=== PATIENT | male | born 1975 | race Caucasian/White ===

== ENCOUNTER 2019-02-20 16:47 | Emergency (ER) | payer OTHER ==
[~2019-02-20] VITALS: Ht 188 cm; Wt 124.7 kg
[2019-02-20 16:50] VITALS: BP_SYST 158
[2019-02-20] MEDS ORDERED: HYDROcodone/ACETAMIN 10-325 MG TAB PO ONE (18:00)
[2019-02-20 18:25] VITALS: BP_SYST 134
== END 2019-02-20 18:25 | disposition home or self-care (01) ==
LOC: SED 16:47
DX: S83.005A Unspecified dislocation of left patella, initial encounter (principal); J45.909 Unspecified asthma, uncomplicated; E11.9 Type 2 diabetes mellitus without complications; R03.0 Elevated blood-pressure reading, without diagnosis of hypertension; W19.XXXA Unspecified fall, initial encounter; Y93.89 Activity, other specified; Y92.89 Other specified places as the place of occurrence of the external cause; Y99.8 Other external cause status
CPT/HCPCS: 73564; 99283

== ENCOUNTER 2021-01-04 01:29 | Inpatient (IN) | payer OTHER, SELFPAY ==
[~2021-01-04] VITALS: Ht 188 cm; Wt 109.8 kg
[2021-01-04] VITALS (7 sets, daily range): BP systolic 113–157
[2021-01-04] MEDS ORDERED: ASPIRIN 81 MG TAB.CHEW ONE (01:57)
[2021-01-04 01:59] LABS: EOSINOPHILS % (AUTO) 2.1 % (0.0-4.0); HEMATOCRIT 48.6 % (36-54); HEMOGLOBIN 16.4 g/dL (14.0-18.0); LYMPHOCYTES % (AUTO) 42.4 % (20.5-51.5); MEAN CORPUSCULAR HEMOGLOBIN 31 pg (27-31); MEAN CORPUSCULAR HGB CONC 34 % (32-36); MEAN CORPUSCULAR VOLUME 91 fL (79.0-98.0); MONOCYTES % (AUTO) 7.1 % (1.7-9.3); NEUTROPHILS % (AUTO) 47.6 % (40.0-70.0); PLATELET COUNT (AUTO) 260 K/uL (130-430); RED BLOOD CELL COUNT(AUTO) 5.33 MIL/uL (4.2-6.2); RED CELL DISTRIBUTION WIDTH 13.2 % (9.0-15.0); WHITE BLOOD COUNT (AUTO) 7.5 K/uL (4.8-10.8)
[2021-01-04 02:00] LABS: BASOPHILS # (AUTO) 0.1 K/uL (0.0-0.2); BASOPHILS % (AUTO) 0.8 % (0.0-2.0); EOSINOPHILS # (AUTO) 0.2 K/uL (0.0-0.4); LYMPHOCYTES # (AUTO) 3.2 K/uL (1.0-5.5); MONOCYTES # (AUTO) 0.5 K/uL (0.0-1.0); NEUTROPHILS # (AUTO) 3.6 K/uL (1.8-7.7)
[2021-01-04] MEDS ORDERED: ASPIRIN 81 MG TAB.CHEW PO ONE (02:00)
[2021-01-04] MEDS ORDERED: NITROGLYCERIN 0.4 MG TAB.SUBL SL ONE (02:15)
[2021-01-04 02:17] LABS: INR 0.9 (0.80-1.20); PROTHROMBIN TIME 9.6 SECS (9.5-12.5)
[2021-01-04 02:26] LABS: CALCIUM 9.6 mg/dL (8.4-11.0); CREATININE 0.88 mg/dL (0.55-1.30); POTASSIUM 3.8 mmol/L (3.5-5.1)
[2021-01-04 02:33] LABS: TOTAL BILIRUBIN 1.1 mg/dL (0.0-1.0)
[2021-01-04] MEDS ORDERED: NACL 0.9% 1,000 ML IV ONE (02:45)
[2021-01-04 02:57] LABS: BILIRUBIN,URINE NEGATIVE (NEGATIVE); CLARITY/URINE CLEAR (CLEAR); COLOR,URINE YELLOW (YELLOW); GLUCOSE,URINE 3+ (NEGATIVE); KETONES,URINE 3+ (NEGATIVE); LEUKOCYTE ESTERASE ,URINE NEGATIVE (NEGATIVE); NITRITE, URINE NEGATIVE (NEGATIVE); PROTEIN URINE NEGATIVE (NEGATIVE); UROBILINOGEN,URINE 0.2 (0.2-1.0)
[2021-01-04 03:10] LABS: BARBITURATE, URINE NEGATIVE (NEG <=200); BENZODIAZEPINE, URINE NEGATIVE (NEG <=150); CANNABINOID, URINE POSITIVE (NEG <=50); COCAINE, URINE NEGATIVE (NEG <=150); METHAMPHETAMINES SCREEN,URINE NEGATIVE (NEG <=500); OPIATE, URINE NEGATIVE (NEG <=100); PHENCYCLIDINE SCREEN,URINE NEGATIVE (NEG <=25); UR TRICYCLIC ANTIDEPRESSANTS NEGATIVE (NEG <=300); URINE AMPHETAMINE NEGATIVE (NEG <=500); URINE METHADONE NEGATIVE (NEG <=200); URINE OXYCODONE SCREEN NEGATIVE (NEG <=100); URINE PROPOXYPHENE SCREEN NEGATIVE (NEG <=300)
[2021-01-04 03:11] LABS: BLOOD, URINE TRACE (NEGATIVE)
[2021-01-04 03:18] LABS: BACTERIA,URINE FEW /HPF (None Seen); WBC,URINE 0-3 /HPF (0-3)
[2021-01-04] MEDS ORDERED: INSULIN REGULAR, HUMAN 100 UNITS/ML, 10 ML VIAL (humuLIN R) SUBCUT PRN (03:45)
[2021-01-04] MEDS ORDERED: ESCI10TA PO (04:14)
[2021-01-04] MEDS ORDERED: ATOR10TA68 PO (04:14)
[2021-01-04] MEDS ORDERED: METF-834 PO (04:14)
[2021-01-04] MEDS ORDERED: FLUT12AE5 IH (04:14)
[2021-01-04] MEDS ORDERED: ALBMDI INH (04:14)
[2021-01-04] MEDS ORDERED: LOSA25TA3 PO (04:14)
[2021-01-04] MEDS ORDERED: MORPHINE 4 MG INJ. 4 MG/ML VIAL IVP ONE (04:30)
[2021-01-04] MEDS ORDERED: ACETAMINOPHEN 325 MG TABLET PO PRN (06:30)
[2021-01-04] MEDS ORDERED: NITROGLYCERIN 0.4 MG TAB.SUBL SL PRN ×2 (09:45→10:45)
[2021-01-04] MEDS ORDERED: ATORVASTATIN 10 MG TABLET PO SCH ×2 (10:15→18:00)
[2021-01-04] MEDS ORDERED: CITALOPRAM HYDROBROMIDE 20 MG TABLET PO ONE (10:30)
[2021-01-04] MEDS ORDERED: NON-FORMULARY MEDICATION (Metformin Hcl (Metformin Hcl Er) 500 MG) PO SCH (10:45)
[2021-01-04] MEDS ORDERED: metFORMIN HCL 500 MG TABLET PO ONE (10:45)
[2021-01-04] MEDS ORDERED: ALBUTEROL MDI INHALATION 8 GM INH INH PRN (10:45)
[2021-01-04] MEDS ORDERED: DIPHENHYDRAMINE INJ 50 MG/ML VIAL IVP PRN (10:45)
[2021-01-04] MEDS ORDERED: ONDANSETRON HCL 4 MG/2 ML VIAL IVP PRN (10:45)
[2021-01-04] MEDS ORDERED: NALOXONE HCL 0.4 MG/ML AMP (NARCAN) IVP PRN (10:45)
[2021-01-04] MEDS: MORPHINE 2 MG/ML INJ. SYRINGE IVP PRN ×2 (11:02→17:07)
[2021-01-04] MEDS ORDERED: DEXTROSE 50% JECT 50 ML DISP.SYRIN IVP PRN (11:15)
[2021-01-04] MEDS: INSULIN REGULAR, HUMAN 100 UNITS/ML, 10 ML VIAL (humuLIN R) SUBCUT PRN ×3 (11:33→20:43)
[2021-01-04] MEDS: ALBUTEROL SULFATE 0.083% 2.5 MG/3 ML VIAL.NEB INH PRN ×2 (12:10→17:22)
[2021-01-04] MEDS: METOPROLOL TARTRATE 25 MG TABLET PO SCH (20:36)
[2021-01-04] MEDS: MORPHINE 4 MG INJ. 4 MG/ML VIAL IVP PRN (21:13)
[2021-01-05] MEDS: ALBUTEROL SULFATE 0.083% 2.5 MG/3 ML VIAL.NEB INH PRN ×2 (00:04→04:10)
[2021-01-05 01:33] VITALS: BP_SYST 154
[2021-01-05] MEDS: MORPHINE 4 MG INJ. 4 MG/ML VIAL IVP PRN (03:06)
[2021-01-05] MEDS: INSULIN REGULAR, HUMAN 100 UNITS/ML, 10 ML VIAL (humuLIN R) SUBCUT PRN ×2 (06:10→12:34)
[2021-01-05 07:04] LABS: BASOPHILS % (AUTO) 0.7 % (0.0-2.0); EOSINOPHILS # (AUTO) 0.1 K/uL (0.0-0.4); EOSINOPHILS % (AUTO) 2.2 % (0.0-4.0); HEMATOCRIT 43.2 % (36-54); HEMOGLOBIN 14.5 g/dL (14.0-18.0); LYMPHOCYTES # (AUTO) 3.4 K/uL (1.0-5.5); LYMPHOCYTES % (AUTO) 56.3 % (20.5-51.5); MEAN CORPUSCULAR HEMOGLOBIN 31 pg (27-31); MEAN CORPUSCULAR HGB CONC 34 % (32-36); MEAN CORPUSCULAR VOLUME 91 fL (79.0-98.0); MONOCYTES # (AUTO) 0.5 K/uL (0.0-1.0); MONOCYTES % (AUTO) 8.4 % (1.7-9.3); NEUTROPHILS % (AUTO) 32.4 % (40.0-70.0); PLATELET COUNT (AUTO) 229 K/uL (130-430); RED BLOOD CELL COUNT(AUTO) 4.74 MIL/uL (4.2-6.2)
[2021-01-05 07:48] LABS: ALBUMIN 3.4 g/dL (3.4-4.8); CALCIUM 9.2 mg/dL (8.4-11.0); CREATININE 0.73 mg/dL (0.55-1.30); POTASSIUM 4.1 mmol/L (3.5-5.1); TOTAL BILIRUBIN 1.4 mg/dL (0.0-1.0)
[2021-01-05 08:00] VITALS: BP_SYST 122
[2021-01-05] MEDS ORDERED: ASPIRIN 81 MG TABLET(ECOTRIN) PO SCH ×2 (09:00)
[2021-01-05] MEDS ORDERED: REGADENOSON 0.4 MG/5 ML SYRINGE IVP ONE (09:00)
[2021-01-05] MEDS ORDERED: CITALOPRAM HYDROBROMIDE 20 MG TABLET PO SCH (09:00)
[2021-01-05] MEDS ORDERED: LOSARTAN POTASSIUM 25 MG TABLET PO SCH (09:00)
[2021-01-05] MEDS: METOPROLOL TARTRATE 25 MG TABLET PO SCH (10:33)
[2021-01-05 12:19] VITALS: BP_SYST 150
[2021-01-05 14:20] VITALS: BP_SYST 122
[2021-01-05] MEDS ORDERED: metFORMIN HCL 500 MG TABLET PO SCH (18:00)
== END 2021-01-05 15:00 | disposition home or self-care (01) | DRG 313 ==
LOC: SED 01:29 → STU 03:32
PROVIDERS: ADMIT Internal Medicine; ATTEND Internal Medicine
DX: R07.89 Other chest pain (principal); E11.65 Type 2 diabetes mellitus with hyperglycemia; I10 Essential (primary) hypertension; E66.9 Obesity, unspecified; E78.5 Hyperlipidemia, unspecified; J45.909 Unspecified asthma, uncomplicated; Z20.822 Contact with and (suspected) exposure to COVID-19; M19.90 Unspecified osteoarthritis, unspecified site; F17.210 Nicotine dependence, cigarettes, uncomplicated; Z79.84 Long term (current) use of oral hypoglycemic drugs; Z79.899 Other long term (current) drug therapy; Z83.3 Family history of diabetes mellitus; Z82.49 Family history of ischemic heart disease and other diseases of the circulatory system; Z80.9 Family history of malignant neoplasm, unspecified; Z68.31 Body mass index [BMI] 31.0-31.9, adult
CPT/HCPCS: 36415; 71045; 80053; 80061; 80307; 81000-TC; 82550-TC; 82962; 83036; 83880; 84484; 85025; 85379; 85610-TC; 93005; 93017; 93306; 94640; 94760; 96361; 96374; G0378; J1815; J2270; J2785; J7030; J7613